=== PATIENT | female | born 1970 | race Caucasian/White ===

== ENCOUNTER 2019-03-03 18:33 | Emergency (ER) | payer OTHER ==
[2019-03-03 18:43] VITALS: BP 136/78
[2019-03-03] MEDS ORDERED: SULFAMETHOX/TMP 800/160 MG 1 TAB PO ONE (18:52)
--- NOTE | 2019-03-03 18:57 | EDPHY ---
H & P Stated Complaint: right eye infected "styes" since Tuesday . Started oral keflex yesterday Time Seen by Provider: 03/03/19 18:42 HPI/ROS: CHIEF COMPLAINT: Right eye infection HISTORY OF PRESENT ILLNESS: Patient is a 48-year-old female who comes to the emergency department complaining of a stye to her lower right eyelid. She also has blepharitis to her upper right eyelid. 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 The stye resolved and she felt better for about a week but now it has returned. She began taking Keflex yesterday but has not yet noticed any significant improvement. She has also been using cold compresses. No vision changes. She is not wearing contacts. No fevers. No eye pain or pressure. No headache. Severity: Moderate Modifying factors: None REVIEW OF SYSTEMS: Constitutional: denies: chills, fever, recent illness, recent injury EENTM: See above Respiratory: denies: cough, shortness of breath Cardiac: denies: chest pain, irregular heart rate, lightheadedness, palpitations Gastrointestinal/Abdominal: denies: abdominal pain, diarrhea, nausea, vomiting, blood streaked stools Genitourinary: denies: dysuria, frequency, hematuria, pain Musculoskeletal: denies: joint pain, muscle pain Skin: denies: lesions, rash, jaundice, bruising Neurological: denies: headache, numbness, paresthesia, tingling, dizziness, weakness Hematologic/Lymphatic: denies: blood clots, easy bleeding, easy bruising Immunologic/allergic: denies: HIV/AIDS, transplant 10 systems reviewed and negative except as noted EXAM: GENERAL: Well-appearing, well-nourished and in no acute distress. HEAD: Atraumatic, normocephalic. EYES: Sty and right lower eyelid, blepharitis right upper eyelid, tender, vision intact. Pupils equal round and reactive to light, extraocular movements intact, sclera anicteric, conjunctiva are normal. ENT: TMs normal, nares patent, oropharynx clear without exudates. Moist mucous membranes. NECK: Normal range of motion, supple without lymphadenopathy or JVD. LUNGS: Breath sounds clear to auscultation bilaterally and equal. No wheezes rales or rhonchi. HEART: Regular rate and rhythm without murmurs, rubs or gallops. ABDOMEN: Soft, nontender, normoactive bowel sounds. No guarding, no rebound. No masses appreciated. BACK: No CVA tenderness, no spinal tenderness, step-offs or deformities EXTREMITIES: Normal range of motion, no pitting or edema. No clubbing or cyanosis. NEUROLOGICAL: Cranial nerves II through XII grossly intact. Normal speech, normal gait. 5/5 strength, normal movement in all extremities, normal sensation , normal reflexes PSYCH: Normal mood, normal affect. SKIN: Warm, dry, normal turgor, no visible rashes or lesions. Source: Patient - Personal History LMP (Females 10-55): Unknown Current Tetanus/Diphtheria Vaccine: Unsure Current Tetanus Diphtheria and Acellular Pertussis (TDAP): Unsure - Medical/Surgical History Hx Asthma: No Hx Chronic Respiratory Disease: No Hx Diabetes: No Hx Cardiac Disease: No Hx Renal Disease: No Hx Cirrhosis: No Hx Alcoholism: No Hx HIV/AIDS: No - Family History Significant Family History: No pertinent family hx - Social History Smoking Status: Unknown if ever smoked Alcohol Use: Sober Drug Use: None Constitutional: Initial Vital Signs Heart Rate 88 03/03/19 18:38 Respiratory Rate 16 03/03/19 18:38 Blood Pressure 136/78 H 03/03/19 18:38 O2 Sat (%) 97 03/03/19 18:38 O2 Delivery Mode Room Air Allergies/Adverse Reactions: amoxicillin [Amoxicillin] Allergy (Verified 03/03/19 18:43) Home Medications: Medication Instructions Recorded CEPHALEXIN 03/03/19 Sulfamethox/Tmp 800/160 mg 1 tab PO BID #14 tab 03/03/19 [Bactrim Ds] Medical Decision Making ED Course/Re-evaluation: The patient is suffering from a stye and blepharitis. No preseptal cellulitis or proptosis. No pain with eye movement. She I encouraged warm compresses and will add Bactrim to her Keflex prescription. I will have her follow up with Ophthalmology in the next 48 hr. She has happened agrees with this plan. Will give her initial dose of Bactrim here in the emergency department. We discussed not using alcohol. We discussed expected course and indications for returning to the emergency department. Differential Diagnosis: Partial list of the Differential diagnosis considered include but were not limited to; blepharitis, stye, and although unlikely based on the history and physical exam, I also considered conjunctivitis, Dacryoadenitis, orbital cellulitis, preseptal cellulitis, abscess. I discussed these differential diagnoses and the plan with the patient as well as the usual and expected course. The patient understands that the diagnosis is provisional and that in medicine we are not always correct and that further workup is often warranted. Usual and customary warnings were given. All of the patient's questions were answered. The patient was instructed to return to the emergency department should the symptoms at all worsen or return, otherwise to followup with the physician as we discussed. - Data Points Medications Given: Discontinued Medications Trimethoprim/Sulfamethoxazole (Bactrim Ds) 1 ea PO EDNOW ONE PRN Reason: Protocol Stop: 03/03/19 18:53 Last Admin: 03/03/19 19:09 Dose: Not Given Trimethoprim/Sulfamethoxazole (Bactrim Ds Prepack#2) 1 btl TAKEHOME EDNOW ONE Stop: 03/03/19 19:08 Last Admin: 03/03/19 19:07 Dose: 1 btl Departure - Departure Disposition: Home, Routine, Self-Care Clinical Impression: Blepharitis of eyelid of right eye Qualifiers: Blepharitis type: unspecified type Eyelid: upper Qualified Code(s): H01.001 - Unspecified blepharitis right upper eyelid Sty, internal Qualifiers: Laterality: right Eyelid: lower Qualified Code(s): H00.022 - Hordeolum internum right lower eyelid Condition: Fair Instructions: Stye (ED), Blepharitis (ED) Referrals: ARCADIO CROCKETT [Primary Care Provider] - As per Instructions Rogelio Gleason MD [Medical Doctor] - 2-3 days, call for appt. Prescriptions: Sulfamethox/Tmp 800/160 mg [Bactrim Ds] 1 tab PO BID #14 tab
[2019-03-03] MEDS ORDERED: SULFAMET/TMP DS PREPACK#2 BTL TAKEHOME ONE ×2 (19:02→19:07)
== END 2019-03-03 19:11 | disposition home or self-care (01) ==
LOC: CED 18:33
DX: H01.001 Unspecified blepharitis right upper eyelid (principal); H00.022 Hordeolum internum right lower eyelid; Z79.899 Other long term (current) drug therapy
CPT/HCPCS: 99283-ER